=== PATIENT | male | born 1970 | race Two or more races ===

== ENCOUNTER 2021-02-01 20:19 | Emergency (ER) | payer SELFPAY ==
[~2021-02-01] VITALS: Ht 177.8 cm; Wt 82.0 kg
[2021-02-01 20:20] VITALS: BP 162/90
== END 2021-02-01 22:00 | disposition left against medical advice (07) ==
LOC: ER 20:48
DX: Z53.21 Procedure and treatment not carried out due to patient leaving prior to being seen by health care provider (principal)